=== PATIENT | male | born 1980 | race Caucasian/White ===

== ENCOUNTER 2021-03-10 08:13 | Day surgery (SDC) | payer BC ==
[~2021-03-10 08:13] MED LIST: Lactated Ringers 1,000 ML IV SCH
--- NOTE | 2021-03-10 08:13 | PCM.PREANE ---
Preanesthetic Assessment - Anesthesia/Transfusion/Family Hx Anesthesia History: Prior Anesthesia Without Reaction Transfusion History: No Prior Transfusion(s) - Review of Systems General: No Symptoms Pulmonary: No Symptoms Cardiovascular: No Symptoms Gastrointestinal: No Symptoms Neurological: No Symptoms Other: Reports: None - Physical Assessment NPO Status Date: 03/10/21 NPO Status Time: 00:00 Height: 6 ft 2 in Weight: 215 lb ASA Class: 2 Mental Status: Alert & Oriented x3 Airway Class: Mallampati = 2 Dentition: Reports: Normal Dentition ROM/Head Extension: Full Lungs: Clear to Auscultation, Normal Respiratory Effort Cardiovascular: Regular Rate, Regular Rhythm - Allergies Allergies/Adverse Reactions: Allergies Allergy/AdvReac Type Severity Reaction Status Date / Time animal dander Allergy Sneezing Verified 03/06/21 07:47 mussels Allergy N/V, Verified 03/06/21 09:23 diarrhea - Acknowledgements Anesthesia Type Planned: General Anesthesia Pt an Appropriate Candidate for the Planned Anesthesia: Yes Alternatives and Risks of Anesthesia Discussed w Pt/Guardian: Yes Pt/Guardian Understands and Agrees with Anesthesia Plan: Yes PreAnesthesia Questionnaire - Past Health History Medical/Surgical History: Denies Medical/Surgical History Gastrointestinal History: Reports: GERD Dermatologic History: Reports: Eczema - Infectious Disease History Infectious Disease History: Reports: Chicken Pox - Past Surgical History Head Surgeries/Procedures: Reports: None Musculoskeletal Surgical History: Reports: Shoulder Surgery Other Musculoskeletal Surgeries/Procedures:: right RTCR - SUBSTANCE USE Tobacco Use Status *Q: Never Tobacco User - HOME MEDS Home Medications: Home Meds Pantoprazole Sodium [Protonix] 40 mg PO DAILY 03/06/21 [History] - CURRENT (IN HOUSE) MEDS Current Meds: Current Medications Lactated Ringer's (Ringers, Lactated) 1,000 mls @ 125 mls/hr IV ASDIRECTED GUNJAN
[2021-03-10] MEDS ORDERED: fentaNYL 100 MCG/2 ML SDV ONE (08:30)
[2021-03-10] MEDS ORDERED: Lidocaine 2% 100 MG/5 ML Syringe ONE (08:30)
[2021-03-10] MEDS ORDERED: Propofol 200 MG/20 ML SDV ONE (08:31)
[2021-03-10] MEDS ORDERED: Ondansetron 4 MG/2 ML SDV ONE (09:17)
--- NOTE | 2021-03-10 09:29 | PCM.OPNOTE ---
- General Post-Op/Procedure Note Date of Surgery/Procedure: 03/10/21 Operative Procedure(s): Esophagogastroduodenoscopy with gastric biopsy Pre Op Diagnosis: Solid food dysphagia Post-Op Diagnosis: Mild chronic gastritis. No evidence of esophageal stricture. Anesthesia Technique: MAC (ASA II) Primary Surgeon: Edvin Malave Condition: Good Free Text/Narrative:: DICTATION [id number] CPT CODE [id number]
[2021-03-10] MEDS ORDERED: Lactated Ringers 1,000 ML IV SCH (09:30)
--- NOTE | 2021-03-10 09:37 | PCM48HPAN ---
Post Anesthesia Note - EVALUATION WITHIN 48HRS OF ANESTHETIC Vital Signs in Normal Range: Yes Patient Participated in Evaluation: Yes Respiratory Function Stable: Yes Airway Patent: Yes Cardiovascular Function Stable: Yes Hydration Status Stable: Yes Pain Control Satisfactory: Yes Nausea and Vomiting Control Satisfactory: Yes Mental Status Recovered: Yes Vital Signs: Last Vital Signs Temp 97.5 F 03/10/21 09:29 Pulse 79 03/10/21 09:29 Resp 14 03/10/21 09:29 BP 137/86 03/10/21 09:29 Pulse Ox 95 03/10/21 09:29
--- NOTE | 2021-03-10 09:37 | PCM.POSTAN ---
POST ANESTHESIA ASSESSMENT - MENTAL STATUS Mental Status: Alert, Oriented - VITAL SIGNS Vital Signs: Last Vital Signs Temp 97.5 F 03/10/21 09:29 Pulse 79 03/10/21 09:29 Resp 14 03/10/21 09:29 BP 137/86 03/10/21 09:29 Pulse Ox 95 03/10/21 09:29 - RESPIRATORY Respiratory Status: Respiratory Rate WNL, Airway Patent, O2 Saturation Stable - CARDIOVASCULAR CV Status: Pulse Rate WNL, Blood Pressure Stable - GASTROINTESTINAL GI Status: No Symptoms - POST OP HYDRATION Hydration Status: Adequate & Stable
--- NOTE | 2021-03-10 09:47 | OR ---
SURGEON: Edvin Malave M.D. DATE OF PROCEDURE: 03/10/2021 OPERATION PERFORMED: Esophagogastroduodenoscopy with gastric biopsy. PRIMARY SURGEON: Edvin Malave M.D. ANESTHESIA: MAC. ASA CLASSIFICATION: II. PREOPERATIVE DIAGNOSIS: Dysphagia. POSTOPERATIVE DIAGNOSES: Mild chronic gastritis. DESCRIPTION OF PROCEDURE: The patient was taken to the endoscopy room and positioned on the endoscopy table in the left lateral decubitus position. Time-out was called for appropriate identification of the patient and procedure. Monitored anesthesia care was provided. The bite block was placed between the patient's teeth. The gastroscope was inserted through the bite block into the oropharynx and advanced without difficulty through the esophagus and stomach into the duodenum where examination was now carried out in a retrograde fashion. The duodenum showed no acute inflammatory changes or ulcerations. No tumors or polyps were encountered. The gastroscope was withdrawn to the stomach that did show mild gastritis. No acute ulcerations or tumors were noted. The gastroscope was retroflexed to visualize the proximal stomach. Again, no tumors or polyps were seen proximally and there were no acute inflammatory changes. There was no evidence of hiatal hernia. The gastroscope was then slowly withdrawn, carefully visualizing the greater and lesser curvatures before aspirating the stomach. The GE junction was well defined and showed no acute inflammatory changes or ulcerations. The esophagus itself demonstrated good contractility. No mid or proximal lesions were identified. Specifically, no stricture was identified anywhere along the entire length of the esophagus. The vocal cords were briefly visualized as the scope was withdrawn and noted to move symmetrically. The gastroscope was then removed with the patient having tolerated the procedure well. He was subsequently taken to recovery room in stable condition. PATTIE / ROSIE /[id number]
[2021-03-10 10:27] VITALS: BP 132/80; PULSE 69
== END 2021-03-10 09:50 | disposition home or self-care (01) ==
LOC: MW.SDS 08:13
PROVIDERS: ATTEND Surgery
DX: K29.50 Unspecified chronic gastritis without bleeding (principal); K21.9 Gastro-esophageal reflux disease without esophagitis; Z79.899 Other long term (current) drug therapy; Z98.890 Other specified postprocedural states
CPT/HCPCS: 43239; J2405; J2704; J3010; J7120; 00731

== ENCOUNTER 2022-04-18 10:03 | Day surgery (SDC) | payer BC ==
[~2022-04-18 10:03] MED LIST changes: +ceFAZolin 2 GM in Premix Bag 1 BAG IV SCH
[2022-04-18] MEDS ORDERED: Metoclopramide 10 MG/2 ML SDV IVPUSH PRN (10:51)
[2022-04-18] MEDS ORDERED: Ondansetron 4 MG/2 ML SDV IVPUSH PRN (10:51)
[2022-04-18] MEDS ORDERED: Morphine 2 MG/ML SYRINGE IVPUSH PRN (10:51)
[2022-04-18] MEDS ORDERED: Albuterol 0.083% 2.5 MG/3 ML Neb Soln NEB PRN (10:51)
[2022-04-18] MEDS ORDERED: HYDROmorphone 1 MG/ML Syringe IVPUSH PRN (10:51)
[2022-04-18] MEDS ORDERED: Naloxone 0.4 MG/ML SDV IVPUSH PRN (10:51)
[2022-04-18] MEDS ORDERED: fentaNYL 50 MCG/ML SDV IVPUSH PRN (10:51)
[2022-04-18] MEDS ORDERED: Ropivacaine 0.5% 5 MG/ML 30 ML SDV ONE (12:00)
[2022-04-18] MEDS ORDERED: fentaNYL 100 MCG/2 ML SDV ONE ×2 (12:01→12:59)
[2022-04-18] MEDS ORDERED: Midazolam 1 MG/ML 2 ML SDV ONE (12:01)
[2022-04-18] MEDS ORDERED: Lidocaine 2% 5 ML SDV ONE (12:03)
[2022-04-18] MEDS ORDERED: Propofol 200 MG/20 ML SDV ONE ×2 (12:59→13:00)
[2022-04-18] MEDS ORDERED: Dexmedetomidine 200 MCG/2 ML SDV ONE (12:59)
[2022-04-18] MEDS ORDERED: Lidocaine 2% 100 MG/5 ML Syringe ONE (12:59)
[2022-04-18] MEDS ORDERED: Rocuronium Bromide 50 MG/5 ML Syringe ONE (12:59)
[2022-04-18] MEDS ORDERED: ceFAZolin 2 GM Vial ONE ×2 (12:59→14:00)
[2022-04-18] MEDS ORDERED: Dexamethasone 4 MG/ML 5 ML MDV ONE (12:59)
[2022-04-18] MEDS ORDERED: Sugammadex Sodium 200 MG/2 ML VIAL ONE (14:44)
[2022-04-18] MEDS ORDERED: Ketorolac 30 MG/ML SDV ONE (14:44)
[2022-04-18 16:24] VITALS: BP 108/74; PULSE 57
== END 2022-04-18 16:30 | disposition home or self-care (01) ==
LOC: MW.SDS 10:03
PROVIDERS: ATTEND Orthopaedic Surgery
DX: S86.011A Strain of right Achilles tendon, initial encounter (principal); K21.9 Gastro-esophageal reflux disease without esophagitis; G89.29 Other chronic pain; R10.13 Epigastric pain; Z79.899 Other long term (current) drug therapy; Z98.890 Other specified postprocedural states; Z91.013 Allergy to seafood; X58.XXXA Exposure to other specified factors, initial encounter
CPT/HCPCS: 27650; J0131; J0690; J1100; J1885; J2250; J2704; J2795; J3010; J3490; J7120